=== PATIENT | male | born 1970 | race Caucasian/White ===

== ENCOUNTER 2019-06-21 13:55 | Emergency (ER) | payer SELFPAY ==
--- NOTE | 2019-06-21 14:16 | ERPHSYRPT ---
- History of Present Illness Time Seen by Provider: 06/21/19 14:16 Source: patient Exam Limitations: no limitations Patient Subjective Stated Complaint: Pt is a bedoya and he has had a splinter in his left hand for over 2 years and occassionally tries to work it out and this past week his left hand has become inflamed, swollen and bleeding in some areas Triage Nursing Assessment: Pt brought into the ER by family, vitals wnl, rates pain 10/10 in left hand, pulses normal, cap refill normal, Physician History: The patient is a [id number] male who presents with a chief complaint of left hand itching, swelling and skin changes. Onset reportedly was 4 years ago but is gotten worse over the last month the last couple weeks. 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 He is endorsed having intermittent itching and reportedly has been trying to "pick" the object out of his hand over the past 4 years. Over the past month he states that his hand has increasingly itched and he has been trying to use a tweezer to try to remove the foreign body out of his hand. He states the foreign body seems to "move" and now is located between the thumb and the first index finger. He was accompanied by his fiancee who reported the patient picks and scratches at the affected area constantly. She also reports the patient is scratches the affected hand while in bed at night on a nightly basis. He reports spraying peroxide to the affected region due to a friend recommending it which made his symptoms worse. He also has been applying Neosporin to the affected areas with no relief and some type of OTC medications that reportedly some how removes embedded foreign bodies over the years. He came to the ED today wanting me to remove the foreign body. Timing/Duration: other (4 years) Allergies/Adverse Reactions: No Known Drug Allergies Allergy (Verified 06/21/19 14:06) Hx Tetanus, Diphtheria Vaccination/Date Given: No - Review of Systems Constitutional: No Fever, No Chills Eyes: No Symptoms Ears, Nose, & Throat: No Symptoms Respiratory: No Symptoms Cardiac: No Symptoms Abdominal/Gastrointestinal: No Symptoms Skin: Pruritis, Rash, Skin Lesions, Dryness, Other (Rash, swelling, erythema, pruritus, and excoriations with minor bleeding noted to the left hand) Psychological: No Symptoms Endocrine: No Symptoms Immunological/Allergic: No Symptoms All Other Systems: Reviewed and Negative - Past Medical History Pertinent Past Medical History: No - Past Surgical History Past Surgical History: Yes Other Surgical History: trach and surgery on jugular vein - Social History Smoking Status: Current every day smoker How long have you smoked: 30 years Exposure to second hand smoke: Yes Drug Use: marijuana Patient Lives Alone: No - Nursing Vital Signs Nursing Vital Signs: Initial Vital Signs Temperature 98.1 F 06/21/19 14:00 Pulse Rate 92 H 06/21/19 14:00 Respiratory Rate 12 06/21/19 14:00 Blood Pressure 136/91 06/21/19 14:00 O2 Sat by Pulse Oximetry 97 06/21/19 14:00 Pain Scale Pain Intensity 5 - Physical Exam General Appearance: no apparent distress Eye Exam: PERRL/EOMI, No scleral icterus Skin Exam: other (The left hand appeared to have some dark-colored erythema, skin flaking, and changes consistent with what appears to be chronic dermatitis. There was no purulent drainage but areas of punctate hemorrhages consistent with recent irritation. The area that was affected included the thenar space, and webspace of the thumb and index finger and extened to the dorsal aspect of the hand and proximal fingers. ) SpO2 Interpretation: normal SpO2: 97 O2 Delivery: Room Air Ordered Tests: Active Orders 24 hr Category Date Time Status EXTREMITY NON VASCULAR [US] Routine Exams 06/21/19 16:05 Completed - Progress Progress: unchanged Progress Note: 06/21/19 16:00 Delay in patient care and disposition due to what seems to be a computer issue. I entered the patient's ultrasound of his left hand 06/22/19 11:44 Nontoxic in appearance. US had no evidence of retained foreign body. I suspect his skin changes are likely from some form of chronic dermatitis. He was instructed to refrain from applying peroxide to his hand. He was also instructed to refrain from applying neosporin the OTC medication that he has been using to reportedly draw the foreign body out of his soft tissue. He was prescribed triamcinolone to the affected region of his skin. He was also instructed to f/u with a PCP and given referral information. Counseled pt/family regarding: diagnosis, need for follow-up, rad results - Departure Departure Disposition: Home Clinical Impression: Contact dermatitis, Dermatitis Condition: Stable Critical Care Time: No Referrals: DOCTOR,NO FAMILY [Primary Care Provider] - Instructions: Dermatitis, Skin Rash (DC) Additional Instructions: Please do not apply any [id number] medication to your hand or use any Neosporin to treat your hand swelling and itching and wounds. Please only use the steroid cream that I have prescribed and follow-up with her primary care provider and/or manager online if your symptoms are not improving. Prescriptions: Triamcinolone 25 gm MC BID 30 Days #100 powder
--- NOTE | 2019-06-21 17:02 | XRAY ---
Indication: Left hand splinter. Two-dimensional targeted soft tissue ultrasound performed over the region of interest, base of thumb. There is focal solid/cystic mass or abnormal fluid collection. Impression: Negative targeted soft tissue ultrasound.
[2019-06-21 17:09] VITALS: BP 120/76; PULSE 72
[2019-06-22 10:27] VITALS: O2SAT 97
== END 2019-06-21 17:09 | disposition home or self-care (01) ==
LOC: ED 13:55
DX: L25.9 Unspecified contact dermatitis, unspecified cause (principal); L30.9 Dermatitis, unspecified
CPT/HCPCS: 76881; 99283